=== PATIENT | female | born 1960 | race Two or more races ===

== ENCOUNTER → 2016-12-04 | Outpatient (CLI) | payer OTHER ==
--- NOTE | ~2016-12-04 | EKG ---
PATIENT: VERONICA WALKER UNIT #: [id number] Ventricular Rate: 60 BPM Atrial Rate: 60 BPM P-R Interval: 154 ms QRS Duration: 92 ms Q-T Interval: 388 ms QTC Calculation(Bezet): 388 ms P Wadley: 9 degrees Calculated R Wadley: 20 degrees Calculated T Wadley: -5 degrees Diagnosis Line: Normal sinus rhythm Diagnosis Line: Normal ECG Diagnosis Line: No previous ECGs available Diagnosis Line: Confirmed by PETR JAY MD ([id number]) on 12/06/2016 Diagnosis Line: 2:48:58 PM INTERPRETING MD: MISTY SPRAGUE
--- NOTE | ~2016-12-04 | CR63 ---
[facility] A Service of [facility] & [facility] RADIOLOGY TEXT RESULTS PATIENT: VERONICA WALKER LOCATION: [facility] : 64 UNIT #: [id number] AGE: [address]: Elisa Darden MD SEX: F ORDER DR: [id number] [facility] [address] [place], [place] [address] [id number] O MR#: [id number] Acc #: [id number] NAME: VERONICA WALKER : 1960 SEX: F STUDY DATE/TIME: 12/04/2016 11:00 UNIT: [facility] ROOM: STUDY DESCRIPTION: CR Chest 2 View Attending Physician: Elisa Darden M.D. Referring Physician: Elisa Darden M.D. Ordering Physician: Elisa Darden M.D. MEDICAL IMAGING REPORT This report is preliminary unless electronic signature is present EXAM Chest PA and lateral 12/04/2016 HISTORY Shortness of breath on exertion. Benign essential hypertension. Preop left shoulder surgery. FINDINGS PA and lateral examination of the chest upright shows a good expansion of the parenchyma with a normal distribution of the pulmonary vascularity. There is no indication of congestion, effusion, infiltrate, tumor, or nodular density. The pleural reflections and diaphragmatic contours are normal. The cardiac silhouette and mediastinal anatomy is within normal limits. IMPRESSION Normal chest. Dictated by... Juan Laguna M.D. THIS IS AN ELECTRONICALLY VERIFIED REPORT Juan Laguna M.D. at 12/07/2016 7:29 AM DEBBIE/ria TD: 12/04/2016 22:14 JOB #: [id number] MEDICAL IMAGING REPORT Page 1 of 1 COPY
[2016-12-04 11:10] LABS: HEMATOCRIT 42.3 % (35.0-45.0); HEMOGLOBIN 13.8 gm/dL (12.0-16.0); MEAN CELL VOLUME 90.6 FL (83-96); MEAN CORPUSCULAR HEMOGLOBIN 29.6 PG (28-34); MEAN CORPUSCULAR HGB CONC 32.7 g/dL (30-36); MEAN PLATELET VOLUME 8.6 FL (6.5-11.5); RED BLOOD COUNT 4.66 X10e (3.90-5.30); RED CELL DISTRIBUTION WIDTH 13.8 % (11.0-15.5); WHITE BLOOD COUNT 7.1 X10e3 (4.0-10.5)
[2016-12-04 11:12] LABS: URINE APPEARANCE CLEAR; URINE BILIRUBIN NEG (NEG); URINE BLOOD TRACE (NEG); URINE COLOR YELLOW; URINE GLUCOSE NEG (NEG); URINE KETONE NEG (NEG); URINE LEUKOCYTE ESTERASE NEG (NEG); URINE NITRATE NEG (NEG); URINE PROTEIN NEG (NEG); URINE SPECIFIC GRAVITY 1.027 (1.003-1.035); URINE UROBILINOGEN 0.2 MG/DL (NEG)
[2016-12-04 11:15] LABS: URINE BACTERIA AUWI 1+ (NEGATIVE); URINE SQUAMOUS EPITHELIAL CELL OCC /[HPF]
[2016-12-04 11:20] LABS: URINE SOURCE CLEAN CATCH
[2016-12-04 11:28] LABS: PARTIAL THROMBOPLASTIN TIME 26.6 SECONDS (23.5-31.3); PROTHROMBIN TIME (PATIENT) 10.5 SECONDS (10.0-11.7)
[2016-12-04 11:46] LABS: ALBUMIN SERUM 4.1 g/dL (3.5-5.0); BILIRUBIN,TOTAL 0.4 mg/dL (0.2-2.0); BUN/CREATININE RATIO 24.28; CALCIUM SERUM 9.2 mg/dL (8.4-10.2); CREATININE SERUM 0.7 mg/dL (0.6-1.4); GLOM FILT RATE Estimated 98.2 mL/min (>60); POTASSIUM 3.7 mmol/L (3.5-5.1); PROTEIN TOTAL SERUM 7.6 g/dL (6.0-8.3)
== END | disposition home or self-care (01) ==
LOC: CLAB 10:05
PROVIDERS: Specialist
DX: Z01.818 Encounter for other preprocedural examination (principal); I10 Essential (primary) hypertension
CPT/HCPCS: 36415; 71020; 80053; 81003; 85027; 85610; 85730; 93005